=== PATIENT | female | born 1990 | race African-American/Black ===

== ENCOUNTER 2020-01-21 08:56 | Emergency (ER) | payer OTHER, SELFPAY ==
[~2020-01-21] VITALS: Ht 175.3 cm; Wt 53.1 kg
[2020-01-21] MEDS ORDERED: NS 1,000 ML IV ONE (09:30)
[2020-01-21] MEDS ORDERED: ONDANSETRON 4MG/2ML VIAL IV ONE (09:30)
[2020-01-21 09:56] LABS: BASO % 0.2 % (0.0-1.0); EOS % 0.2 % (0.0-3.0); HEMOGLOBIN 13.3 g/dl (12.0-15.5); LYMPH # 1.5 10^3/uL (1.5-5.0); LYMPH % 28.4 % (24.0-44.0); MEAN CORPUSCULAR HEMOGLOBIN 28.5 pg (27.0-33.0); MEAN CORPUSCULAR HGB CONC 32.4 g/dl (32.0-36.5); MONO # 0.3 10^3/uL (0.0-0.8); MONO % 5.6 % (0.0-5.0); NEUTROPHILS # 3.4 10^3/uL (1.5-8.5); NEUTROPHILS % 65.4 % (36.0-66.0); PLATELET COUNT, AUTOMATED 177 10^3/uL (150-450); RED BLOOD COUNT 4.66 10^6/uL (4.00-5.40); WHITE BLOOD COUNT 5.2 10^3/uL (4.0-10.0)
[2020-01-21 10:20] LABS: HCG, SERUM QUALITATIVE NEGATIVE (NEGATIVE)
[2020-01-21 10:21] LABS: ALT/SGPT 17 U/L (12-78); BILIRUBIN,DIRECT 0.1 MG/DL (0.0-0.2); BILIRUBIN,TOTAL 0.5 MG/DL (0.2-1.0); BLOOD UREA NITROGEN 7 MG/DL (7-18); CALCIUM LEVEL 9.1 MG/DL (8.5-10.1); CARBON DIOXIDE LEVEL 27 MEQ/L (21-32); CHLORIDE LEVEL 105 MEQ/L (98-107); GLOMERULAR FILTRATION RATE > 60.0 (>60); GLUCOSE, FASTING 91 MG/DL (70-100); POTASSIUM SERUM 4.1 MEQ/L (3.5-5.1); SODIUM LEVEL 139 MEQ/L (136-145); TOTAL PROTEIN 8.1 GM/DL (6.4-8.2)
[2020-01-21] MEDS ORDERED: ONDA4TAB6 PO (11:00)
[2020-01-21] MEDS ORDERED: HYDR-3363 PO (11:00)
[2020-01-21 11:03] VITALS: BP 115/74
== END 2020-01-21 11:31 | disposition home or self-care (01) ==
LOC: M ED 08:56
DX: F41.9 Anxiety disorder, unspecified (principal); Z73.3 Stress, not elsewhere classified; F43.0 Acute stress reaction; Z91.012 Allergy to eggs
CPT/HCPCS: 80048; 80076; 84703; 85025; 99284; J2405